=== PATIENT | female | born 2005 | race Caucasian/White ===

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

== ENCOUNTER 2025-02-13 11:35 | Emergency (ER) | payer OTHER ==
[~2025-02-13] VITALS: Ht 170.2 cm; Wt 64.4 kg
[2025-02-13] MEDS ORDERED: CEFTRIAXONE SODIUM 1,000 MG VIAL IM STA (13:47)
[2025-02-13] MEDS ORDERED: KETOROLAC TROMETHAMINE 30 MG VIAL IM STA (13:48)
[2025-02-13] MEDS ORDERED: CEFTRIAXONE SODIUM 1,000 MG VIAL ONE (14:08)
[2025-02-13] MEDS ORDERED: KETOROLAC TROMETHAMINE 30 MG VIAL ONE (14:08)
== END 2025-02-13 15:08 | disposition home or self-care (01) ==
LOC: EMR PED 12:44 → ER 12:44 → EMR PED 15:08
DX: H92.01 Otalgia, right ear (principal)